=== PATIENT | male | born 1975 | race Caucasian/White ===

== ENCOUNTER 2017-09-05 08:34 | Emergency (ER) | payer SELFPAY ==
[~2017-09-05] VITALS: Ht 167.6 cm; Wt 61.5 kg
[~2017-09-05 08:34] MED LIST: IBUP800T23 PO
[2017-09-05 08:35] VITALS: BP 143/73; PULSE 81; RESP 20; TEMP 98.7; O2SAT 100
[2017-09-05] MEDS ORDERED: IBUP200T47 PO (09:03)
[2017-09-05] MEDS ORDERED: CYCL5TAB PO (09:10)
[2017-09-05] MEDS ORDERED: TYLETAB34 PO (09:10)
[2017-09-05] MEDS ORDERED: DICL75TA PO (09:10)
[2017-09-05 09:11] VITALS: BP 169/98; PULSE 71; RESP 19; O2SAT 100
[2017-09-05] MEDS ORDERED: ORPHENADRINE INJ 60 MG/2 ML AMP IM ONE (09:15)
[2017-09-05] MEDS ORDERED: KETOROLAC TROMETHAMINE 60 MG/2 ML (IM) VIAL IM ONE (09:15)
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
[2017-09-05 10:11] VITALS: BP 169/98
== END 2017-09-05 10:00 | disposition home or self-care (01) ==
LOC: NEPD 08:34
DX: S46.912A Strain of unspecified muscle, fascia and tendon at shoulder and upper arm level, left arm, initial encounter (principal); W11.XXXA Fall on and from ladder, initial encounter; Y93.H3 Activity, building and construction; Y99.0 Civilian activity done for income or pay; Z72.0 Tobacco use
CPT/HCPCS: 29240; 96372; 99284; J1885; J2360

== ENCOUNTER 2018-04-09 18:57 | Emergency (ER) | payer SELFPAY ==
[~2018-04-09 18:57] MED LIST changes: +CYCL5TAB PO; +DICL75TA PO; +IBUP200T47 PO; -IBUP800T23 PO; +TYLETAB34 PO
[2018-04-09 19:05] VITALS: BP 152/87; PULSE 100; RESP 16; TEMP 100; O2SAT 100
[2018-04-09] MEDS ORDERED: ACETAMINOPHEN 325 MG TAB PO ONE (19:30)
[2018-04-09] MEDS ORDERED: SODIUM CHLORIDE 0.9% FLUSH 10 ML FLUSH IVF PRN (19:30)
[2018-04-09] MEDS ORDERED: SODIUM CHLOR 0.9% 1000 ML INJ 1,000 ML IV ONE (19:30)
[2018-04-09] MEDS ORDERED: LORazepam 2 MG/ML VIAL IV PUSH ONE (19:45)
[2018-04-09 19:52] LABS: AUTOMATED NEUTROPHIL # 2.7 TH/MM3 (1.8-7.7); BASOPHIL % 0.3 % (0.0-2.0); HEMATOCRIT 46.2 % (39.0-51.0); HEMOGLOBIN 15.8 GM/DL (13.0-17.0); LYMPH % 12.9 % (9.0-44.0); LYMPHOCYTE # 0.4 TH/MM3 (1.0-4.8); MEAN CELL VOLUME 94.4 FL (80.0-100.0); MEAN CORPUSCULAR HEMOGLOBIN 32.3 PG (27.0-34.0); MEAN CORPUSCULAR HGB CONC 34.2 % (32.0-36.0); MEAN PLATELET VOLUME 8.5 FL (7.0-11.0); MONO % 6.6 % (0.0-8.0); MONOCYTE # 0.2 TH/MM3 (0-0.9); NEUT % 80.2 % (16.0-70.0); PLATELET COUNT 125 TH/MM3 (150-450); RED BLOOD COUNT 4.89 MIL/MM3 (4.50-5.90); RED CELL DISTRIBUTION WIDTH 13.2 % (11.6-17.2); WHITE BLOOD COUNT 3.4 TH/MM3 (4.0-11.0)
[2018-04-09 20:11] LABS: ALBUMIN 4.1 GM/DL (3.4-5.0); AST (GOT) 18 U/L (15-37); BICARBONATE 23.2 MEQ/L (21.0-32.0); BLOOD UREA NITROGEN 12 MG/DL (7-18); CALCIUM 9.2 MG/DL (8.5-10.1); CHLORIDE 103 MEQ/L (98-107); CREATININE 1.14 MG/DL (0.60-1.30); GLOMERULAR FILTRATION RATE 71 ML/MIN (>89); GLUCOSE,RANDOM 102 MG/DL (74-106); MAGNESIUM 2.2 MG/DL (1.5-2.5); SODIUM (NA) 138 MEQ/L (136-145)
[2018-04-09 20:12] LABS: ALT (GPT) 24 U/L (12-78)
[2018-04-09 20:16] LABS: ALKALINE PHOSPHATASE 57 U/L (45-117); TOTAL BILIRUBIN ADULT 0.4 MG/DL (0.2-1.0); TOTAL PROTEIN 7.6 GM/DL (6.4-8.2); TROPONIN I LESS THAN 0.02 NG/ML (0.02-0.05)
[2018-04-09 20:21] LABS: INTERNATIONAL NORMALIZED RATIO 1.1 RATIO; PROTHROMBIN TIME - PATIENT 11.2 SEC (9.8-11.6)
[2018-04-09 20:35] LABS: D-DIMER 1.59 MG/L FEU (0.00-0.50)
--- NOTE | 2018-04-09 20:52 | RADRPT ---
EXAM DATE: 04/09/2018 8:49 PM EDT AGE/SEX: 42 years / Male INDICATIONS: Shortness of breath, fever, cough and chest pain since Sunday. CLINICAL DATA: This is the patient's initial encounter. Patient reports that signs and symptoms have been present for 3 days and indicates a pain score of 10/10. MEDICAL/SURGICAL HISTORY: None. None. COMPARISON: No prior [place] exams available for comparison. FINDINGS: A single AP view of the chest demonstrates the lungs to be symmetrically aerated without evidence of mass, infiltrate or effusion. The cardiomediastinal contours are unremarkable. Osseous structures a re intact. CONCLUSION: Negative examination. Electronically signed by: Jann Gordon MD 04/09/2018 8:51 PM EDT
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
[2018-04-09] MEDS ORDERED: IOHEXOL 350 MG/ML 10 ML VIAL (for RAD DIAG) IVCONTRAST ONE (21:52)
--- NOTE | 2018-04-09 22:06 | RADRPT ---
EXAM DATE: 04/09/2018 9:51 PM EDT AGE/SEX: 42 years / Male INDICATIONS: Shortness of breath, fever. CLINICAL DATA: This is the patient's initial encounter. Patient reports that signs and symptoms have been present for 1 day and indicates a pain score of 3/10. MEDICAL/SURGICAL HISTORY: Deep venous thrombosis. Renal calculi. None. RADIATION DOSE: 10.49 CTDI (mGy) COMPARISON: No prior [place] exams available for comparison. TECHNIQUE: Volumetric scanning was performed using a multi-row detector CT scanner during bolus infu trang of 70 ml Omnipaque 350 (iohexol) nonionic water-soluble contrast as a single exam dose. The joshua a was post processed with a variety of visualization algorithms including full volume maximum intensi ty projection and sliding thin slab reformation. Using automated exposure control and adjustment of the mA and/or kV according to patient size, radiation dose was kept as low as reasonably achievable t o obtain optimal diagnostic quality images. FINDINGS: Pulmonary Arteries: No filling defects are seen in the pulmonary arteries out to the subsegmental ve ssels. The left and right pulmonary arteries are normal in diameter. Lung: No infiltrates seen. Effusion: None. Mediastinum: No evidence of mediastinal or hilar adenopathy. Other: The axilla is unremarkable. CONCLUSION: 1. This study is negative for pulmonary embolism. Electronically signed by: Jann Gordon MD 04/09/2018 10:05 PM EDT
[2018-04-09 22:30] VITALS: PULSE 104; RESP 18; TEMP 101.7; O2SAT 97
[2018-04-10 00:13] VITALS: BP 124/68; TEMP 100
== END 2018-04-10 00:14 | disposition home or self-care (01) ==
LOC: NEPD 18:57
DX: R53.83 Other fatigue (principal); R50.9 Fever, unspecified; R06.02 Shortness of breath; Z86.711 Personal history of pulmonary embolism; F17.200 Nicotine dependence, unspecified, uncomplicated
CPT/HCPCS: 71045; 71275; 80053; 82550; 83605; 83735; 84484; 85025; 85379; 85610; 85730; 96374; 99285; J2060; J7030; Q9967